=== PATIENT | male | born 1955 | race Caucasian/White ===

== ENCOUNTER → 2017-05-06 | Outpatient (CLI) | payer OTHER ==
--- NOTE | ~2017-05-06 | EXE ---
[facility] [employer] [place] [address] STRESS ECHOCARDIOGRAM Name: SANKET BORRERO Room #: REG KAVITA KooElza#: [id number] Admission: 05/06/17 Attend Phys: Bereket Melendez, Discharge: Date of : 59 Date of Service: 05/06/17 1230 Report #: [id number] THIS REPORT FOR: //name// APPROVED REPORT Exam: Stress Echocardiogram Indication: Abnormal calcium score. Family history, HTN Patient Location: Out-Patient Stress Nurse: Giselle Nettles RN Status: routine Ht: 5 ft 10 in HR: 86 bpm BP: 120/90 mmHg Rhythm: NSR Medical History Allergies: No known drug allergies Cardiac Risk Factors: HTN, Hyperlipidemia Procedure The patient underwent an Exercise Stress Test using the Nishant Protocol. Blood pressure, heart rate, and EKG were monitored. An Echocardiogram was performed by psychiatric technician in four stages in quad fashion. At peak stress, four selected images were obtained and placed side by side with resting images for comparison. Echo Enhancing Agent Indication: Endocardial border delineation Agent(s) / Amount(s) Used: Definity 3 cc Stress Test Details Stress Test: Exercise stress testing was performed using a modified Nishant protocol. HR Resting HR: 86 bpm Max Heart Rate (APMHR): 160 bpm Max HR Achieved: 181 bpm Target HR (85% APMHR): 136 bpm % of APMHR: 113 Recovery HR: 118 bpm HR response to stress: Normal HR response to stress BP Resting BP: 120/90 mmHg Max BP: 170/96 mmHg Recovery BP: 130/90 mmHg [facility] [address] [place] [address] STRESS ECHOCARDIOGRAM Name: SANKET BORRERO Room #: REG KAVITA BoudreauxElzaKaitlinElza#: [id number] Admission: 05/06/17 Attend Phys: Bereket Melendez, Discharge: Date of : 59 Date of Service: 05/06/17 1230 Report #: [id number] Resting ECG: Sinus Rhythm Stress ECG: Sinus Rhythm Recovery ECG: Sinus Rhythm Clinical Reason for Termination: Moderate fatigue Exercise duration: 9 min 57 sec Exercise capacity: 13.2 METs Stress ECG Conclusion 1. SUBJECTIVELY NEGATIVE FOR ISCHEMIA 2. ELECTROCARDIOGRAPHICALLY NEGATIVE FOR ISCHEMIA 3. ADEQUATE FUNCTIONAL CAPACITY Pre-Stress Echo The resting Echocardiogram showed normal left ventricular contractility with an estimated Ejection Fraction of about 60-65%. Trivial MR. Post-Stress Echo The stress Echocardiogram showed normal left ventricular contractility with an estimated Ejection Fraction of about >70%. Normal augmentation of wall motion in all segments on post stress images. Conclusion Clinical Response: Non-ischemic Stress ECG Response: Non-ischemic Stress Echo Images: Non-ischemic 1. LOW RISK STUDY Other Information Study Quality: Adequate <Conclusion> 1. LOW RISK STUDY <ELECTRONICALLY SIGNED> By: Catarino Good MD 05/06/17 1230 1230 1230 Catarino Good MD /INF
== END ==
LOC: CV 07:02
DX: I10 Essential (primary) hypertension (principal); I25.10 Atherosclerotic heart disease of native coronary artery without angina pectoris; Z82.49 Family history of ischemic heart disease and other diseases of the circulatory system